=== PATIENT | male | born 1980 | race Caucasian/White ===

== ENCOUNTER 2017-12-06 06:57 | Emergency (ER) | payer OTHER ==
[~2017-12-06] VITALS: Ht 165.1 cm; Wt 86.2 kg
[2017-12-06 07:00] VITALS: BP_SYST 136
--- NOTE | 2017-12-06 07:00 | NUR ---
BROUGHT BACK TO BED #5 AND TRIAGED. WILL ASSUME CARE.
--- NOTE | 2017-12-06 07:02 | NUR ---
PT STATES THAT HE IS HAVING UPPER ABDOMINAL PAIN SINCE LAST NIGHT, STATES HE THOUGHT HE NEEDED TO HAVE A BM SO HE TOOK MAGNESIUM CITRATE, HAD SMALL DIARRHEA BM THIS AM. PT STATES HE HAS BEEN NAUSEATED WITH VOMITING SINCEL LAST NIGHT.
--- NOTE | 2017-12-06 07:36 | NUR ---
TAKEN TO RADIOLOGY AMBULATORY
--- NOTE | 2017-12-06 07:44 | NUR ---
RETURNED FROM RADIOLOGY, BACK TO ROOM #5
--- NOTE | 2017-12-06 07:50 | NUR ---
PT VOMITED APPROX 400CC OF BROWNISH VOMITUS, DR EMERSON AT BEDSIDE.
--- NOTE | 2017-12-06 08:02 | NUR ---
DR EMERSON AT BEDSIDE FOR EVALUATION
[2017-12-06] MEDS ORDERED: NACL 0.9% 1,000 ML IV ONE (08:15)
[2017-12-06] MEDS ORDERED: ONDANSETRON HCL 4 MG/2 ML VIAL IVP ONE (08:15)
--- NOTE | 2017-12-06 08:19 | NUR ---
PT TAKEN TO RADIOLOGY VIA WHEELCHAIR.
[2017-12-06 08:22] LABS: BASOPHILS # (AUTO) 0.2 K/uL (0.0-0.2); EOSINOPHILS # (AUTO) 0.1 K/uL (0.0-0.4); LYMPHOCYTES # (AUTO) 1.3 K/uL (1.0-5.5); MEAN CORPUSCULAR HGB CONC 34 % (32-36); MEAN CORPUSCULAR VOLUME 81 fL (79.0-98.0); NEUTROPHILS # (AUTO) 8.2 K/uL (1.8-7.7)
[2017-12-06 08:28] LABS: BASOPHILS % (AUTO) 1.8 % (0.0-2.0); EOSINOPHILS % (AUTO) 0.8 % (0.0-4.0); MONOCYTES # (AUTO) 0.4 K/uL (0.0-1.0); MONOCYTES % (AUTO) 4.2 % (1.7-9.3); NEUTROPHILS % (AUTO) 80.2 % (40.0-70.0)
[2017-12-06 08:29] LABS: WHITE BLOOD COUNT (AUTO) 10.2 K/uL (4.8-10.8)
[2017-12-06 08:30] LABS: HEMATOCRIT 47.8 % (36-54); HEMOGLOBIN 16.3 g/dL (14.0-18.0); MEAN CORPUSCULAR HEMOGLOBIN 27 pg (27-31); RED BLOOD CELL COUNT(AUTO) 5.94 MIL/uL (4.2-6.2)
[2017-12-06 08:31] LABS: PLATELET COUNT (AUTO) 332 K/uL (130-430); RED CELL DISTRIBUTION WIDTH 13.1 % (9.0-15.0)
--- NOTE | 2017-12-06 08:32 | NUR ---
RETURNED FROM RADIOLOGY
[2017-12-06 08:37] LABS: CALCIUM 9.2 mg/dL (8.4-11.0); CREATININE 1.17 mg/dL (0.55-1.30); POTASSIUM 3.6 mmol/L (3.5-5.1)
[2017-12-06 08:42] LABS: ALBUMIN 4.2 g/dL (3.4-4.8); TOTAL BILIRUBIN 0.4 mg/dL (0.0-1.0)
--- NOTE | 2017-12-06 08:55 | NUR ---
NO CHANGES, STATES HE FEELS LIKE HIS TUMMY IS RUMBLING.
[2017-12-06] MEDS ORDERED: LACTULOSE 20 GM/30 ML UDC PO ONE (09:15)
[2017-12-06] MEDS ORDERED: KETOROLAC TROMETHAMINE 15 MG VIAL IVP ONE (09:15)
--- NOTE | 2017-12-06 09:25 | NUR ---
DR EMERSON IN TO SEE PT FOR RE-EVALUATION
[2017-12-06 09:36] VITALS: BP_SYST 130
--- NOTE | 2017-12-06 09:37 | NUR ---
Patient given written and verbal discharge instructions and verbalizes understanding. ER MD discussed with patient the results and treatment provided. Patient in stable condition. ID arm band removed. IV catheter removed intact and dressing applied, no active bleeding. Rx of LACTULOSE given. Patient educated on pain management and to follow up with PMD. Pain Scale 0/10. Opportunity for questions provided and answered. Medication side effect fact sheet provided.
== END 2017-12-06 09:36 | disposition home or self-care (01) ==
LOC: SED 06:57
DX: K42.9 Umbilical hernia without obstruction or gangrene (principal); K40.20 Bilateral inguinal hernia, without obstruction or gangrene, not specified as recurrent; K59.00 Constipation, unspecified; Z88.0 Allergy status to penicillin
CPT/HCPCS: 36415; 71045; 74021; 74176; 80053; 83690; 85025; 96361; 96374; 96375; 99285; J1885; J2405